=== PATIENT | male | born 1990 | race Caucasian/White ===

== ENCOUNTER 2018-01-21 13:26 | Emergency (ER) | payer SELFPAY ==
[~2018-01-21] VITALS: Ht 180.3 cm; Wt 83.0 kg
[2018-01-21 13:45] VITALS: Ht 180.3 cm; Wt 83.0 kg
[2018-01-21 14:33] VITALS: BP 124/68
== END 2018-01-21 14:33 | disposition home or self-care (01) ==
LOC: ED 13:26
DX: L03.113 Cellulitis of right upper limb (principal)